=== PATIENT | female | born 1985 | race Caucasian/White ===

== ENCOUNTER 2016-11-02 16:19 | Inpatient (IN) ==
--- NOTE | 2016-11-02 16:33 | Emergency Department Note ---
Disposition Clinical Impression: Hypokalemia, ISAIAS (acute kidney injury), Dehydration, Weight loss, abnormal, Pyelonephritis Nausea & vomiting Qualifiers: Vomiting type: unspecified Vomiting Intractability: unspecified Qualified Code( s): R11.2 - Nausea with vomiting, unspecified Anemia Qualifiers: Anemia type: unspecified type Qualified Code(s): D64.9 - Anemia, unspecified Disposition: Admitted As Inpatient Condition: Fair Referrals: Patrick Farris DO [Primary Care Provider] - Forms: ED Satisfaction Letter Time of Disposition: 18:48 Recheck wound or abnormal lab - General Chief Complaint: ED Recheck/Abnormal Lab/Rx Stated Complaint: Abnormal Labs / - Potasium Time Seen by Provider: 11/02/16 16:25 Source: patient, family Limitations: no limitations Nursing Notes Reviewed: Yes Vital Signs Reviewed: Yes - History of Present Illness HPI Narrative: 31-year-old female with history of cerebral palsy, bipolar, seizure disorder, presents with 20-30 pounds weight loss over the last few months, also she is dilated by her primary care physician yesterday and found to have hypokalemia potassium 2.3, patient denies shortness of breath chest pain lightheadedness. Patient reports right upper quadrant pain or left lower quadrant pain nonradiating, crampy, difficulty to eat meals because she has pain after meals, 8 out of 10, crampy in quality. Patient is a history of cholecystectomy laparoscopically, history of bilateral hernia repairs. Has a nexplanon amenorrhea secondary to norgesterol. Pt Subjective Complaint: abnormal lab(s) Symptoms Since Prior Visit: no new symptoms - Related Data Home Medications Medication Instructions Recorded Confirmed Albuterol Neb [AccuNeb] 2.5 mg IH TID PRN 04/18/15 07/04/15 Aripiprazole [Abilify Maintena] 400 mg IM Q3W 04/18/15 07/04/15 Cetirizine HCl [Zyrtec] 1 cap PO HS 04/18/15 07/04/15 Divalproex (12 HR) [Depakote (12 500 tab PO BID 04/18/15 07/04/15 HR)] Esomeprazole Magnesium [Nexium] 1 cap PO DAILY 04/18/15 07/04/15 Fluticasone/Salmeterol [Advair 1 puff IH BID 04/18/15 07/04/15 250-50 Diskus] Gabapentin [Neurontin] 600 mg PO TID 04/18/15 07/04/15 LevETIRAcetam [Keppra] 1,000 mg PO BID 04/18/15 07/04/15 Montelukast [Singulair] 10 mg PO DAILY 04/18/15 07/04/15 Solifenacin Succinate [Vesicare] 10 mg PO HS 04/18/15 07/04/15 Topiramate [Topamax] 50 mg PO HS 04/18/15 07/04/15 Albuterol Sulfate [Albuterol 90 mcg IH Q4HR PRN 05/09/15 07/04/15 Inhaler] Docusate [Colace] 100 mg PO DAILY PRN 05/09/15 07/04/15 Etonogestrel [Nexplanon] 68 mg SQ ONCE 05/09/15 07/04/15 Previous Rx's Medication Instructions Recorded TraMADol [Ultram] 50 mg PO Q4HR PRN #20 tablet 05/23/15 Cefdinir [Omnicef] 300 mg PO BID #20 capsule 05/30/15 Azithromycin [Zithromax Tri-Joel] 500 mg PO DAILY #3 tablet 07/04/15 Benzonatate [Tessalon] 100 mg PO TID #30 capsule 07/04/15 GuaiFENesin ER [Mucinex] 1,200 mg PO BID #20 tbbp.12hr 07/04/15 Allergies Allergy/AdvReac Type Severity Reaction Status Date / Time Amoxicillin Allergy Mild Hives Verified 05/09/15 07:42 acetaminophen [From Vicodin] AdvReac Severe Itching Verified 04/25/15 14:56 hydrocodone [From Vicodin] AdvReac Severe Itching Verified 11/02/16 16:21 Oxycodone [From Percocet] AdvReac Severe Itching Verified 11/02/16 16:21 codeine AdvReac Unknown UNKNOWN Verified 11/02/16 16:21 fexofenadine [From Eliza-D] AdvReac Unknown Seizure Verified 11/02/16 16:21 lamotrigine [From Lamictal] AdvReac Unknown unknown Verified 11/02/16 16:21 levofloxacin [From Levaquin] AdvReac Unknown UNKNOWN Verified 11/02/16 16:21 prednisone AdvReac Unknown unknown Verified 11/02/16 16:21 pseudoephedrine AdvReac Unknown Seizure Verified 11/02/16 16:21 [From Eliza-D] sertraline [From Zoloft] AdvReac Unknown unknown Verified 11/02/16 16:21 Sulfa (Sulfonamide AdvReac Unknown unknown Verified 11/02/16 16:21 Antibiotics) brexpiprazole [From Rexulti] AdvReac Hallucinati Verified 11/02/16 16:21 ng All systems ED: reviewed and negative except as stated. Constitutional: Reports: weakness, weight change (loss 20-30 pounds in the last month or 2). Denies: fever, chills Cardiovascular: Denies: chest pain, palpitations Respiratory: Denies: cough, dyspnea Gastrointestinal: Reports: as per HPI, abdominal pain, nausea, vomiting, melena. Denies: hematemesis Genitourinary: Denies: urgency, dysuria, frequency Musculoskeletal: Denies: back pain, neck pain Integumentary: Denies: rash Neurological: Denies: headache, weakness Past Medical History - Past Medical History Attestation: Yes The following information was validated with the patient. 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 No rigidity, soft nondistended abdomen Back: normal inspection, no tenderness to palpation Neuro: A&O3, no gross motor or sensory deficits bilaterally MSK: Right foot brace Psych: normal mood, normal affect Skin: No rashes, skin warm, dry, intact - General Limitations: no limitations General appearance: alert, in no apparent distress Course Course Narrative: 31-year-old female with hypokalemia, normal Depakote level, we will check urinalysis, CBC CMP lipase mag [place], repeating, adding potassium IV and oral, also give fluids, checking CT of abdomen giving abdominal exam that showed mild tenderness to palpation left lower quadrant, moderate right upper quadrant tenderness to palpation, no fever, scleral icterus or jaundice, concern for intra-abdominal pathology, also given hypokalemia of unclear origin could be due to gastroenteritis, history of IBS also and GI losses could account for some hypokalemia however this is severe likely patient will be admitted for fluid rehydration and electrolyte status. Guaiac of stool sent, given complaint of melenic stools - Reevaluation(s) Reevaluation #1: 31-year-old female with possible pyelonephritis, hypokalemia, acute on chronic renal failure, we will treat with ceftriaxone, admitted to medicine service for further workup, IV abx and potassium replacement. Time: 19:04 Vital Signs Temperature 98.0 F 11/02/16 16:21 Pulse Rate 87 11/02/16 16:21 Respiratory Rate 15 11/02/16 16:21 Blood Pressure 118/78 11/02/16 16:21 O2 Sat by Pulse Oximetry 100 11/02/16 16:21 Temperature 98.0 F 11/02/16 16:21 Pulse Rate 90 11/02/16 18:39 Respiratory Rate 16 11/02/16 18:39 Blood Pressure 123/83 11/02/16 18:39 O2 Sat by Pulse Oximetry 100 11/02/16 18:39 Oxygen Delivery Oxygen Delivery Room Air Recheck wound or abnormal lab - MDM Narrative Medical decision making narrative: 31-year-old female with hypokalemia and anemia acute kidney injury admitted to medicine service for weight loss nausea vomiting diarrhea, hypokalemia, fluid rehydration and medical management. Admitteed to hospitalist, CT scan reviewed no surgical pathology. CT scan shows evidence of possible ascending urinary tract infection, we will add ceftriaxone patient was recently treated with Avelox for UTI, we will treat appropriate prior to urinalysis received because patient was unable to urinate. - Medical Records Medical records reviewed: Yes I reviewed the patient's medical records. - Lab Data Lab results reviewed: Yes I reviewed the patient's lab results. Result diagrams: 11/02/16 17:23 11/02/16 17:23 Lab Results 0411/02/16 11/02/16 Range/Units 17:23 17:23 17:23 WBC 9.8 (4.3-11.1) K/mcL RBC 2.89 L (3.82-4.97) M/mcL Hgb 9.2 L D (11.5-15.4) g/dL Hct 27.8 L (35.3-44.9) % MCV 96.2 (83.0-100.0) fL MCH 31.8 (28.0-33.3) pg MCHC 33.1 (31.6-35.5) g/dL RDW 13.6 (11.5-14.5) % Plt Count 225 (140-400) K/mcL MPV 9.6 (9.4-12.4) fL Immature Gran % 4.1 H (0-4) % Seg Neutrophils % 55.9 % Lymphocytes % 29.7 % Monocytes % 9.7 % Eosinophils % 0.2 % Basophils % 0.4 % Neutrophils # 5.4 (1.6-8.9) K/mcL Lymphocytes # 2.9 (0.6-4.6) K/mcL Monocytes # 1.0 (0.0-1.3) K/mcL Eosinophils # 0.0 (0.0-0.6) K/mcL Basophils # 0.0 (0.0-0.2) K/mcL Sodium 135 L (136-145) mEq/L Potassium 2.7 L (3.5-4.5) mEq/L Chloride 96 L (98-109) mEq/L Carbon Dioxide 24 (19-29) mEq/L BUN 11 (7-20) mg/dL Creatinine 1.37 H (0.57-1.11) mg/dL Est GFR ( Amer) 55 L (> 60) Est GFR (Non-Af Amer) 45 L (> 60) BUN/Creatinine Ratio 8 (6-26) Glucose 93 (70-99) mg/dL Calculated Osmolality 279 L (280-300) Calcium 8.9 (8.6-10.8) mg/dL Phosphorus 4.5 (2.3-4.7) mg/dL Magnesium 2.2 (1.6-2.6) mg/dL Total Bilirubin 0.4 (0.2-1.2) mg/dL AST 15 (5-34) Units/L ALT 14 (0-55) Units/L Alkaline Phosphatase 60 (38-126) Units/L Serum Total Protein 6.8 (6.0-8.3) g/dL Albumin 2.4 L (3.5-5.0) g/dL Globulin 4.4 H (2.4-3.5) g/dL Albumin/Globulin Ratio 0.5 L (1.1-2.2) Lipase 15 (8-78) Units/L Serum , Qual (Negative) Stool Occult Blood (Negative) 11/02/16 11/02/16 Range/Units 17:23 17:38 WBC (4.3-11.1) K/mcL RBC (3.82-4.97) M/mcL Hgb (11.5-15.4) g/dL Hct (35.3-44.9) % MCV (83.0-100.0) fL MCH (28.0-33.3) pg MCHC (31.6-35.5) g/dL RDW (11.5-14.5) % Plt Count (140-400) K/mcL MPV (9.4-12.4) fL Immature Gran % (0-4) % Seg Neutrophils % % Lymphocytes % % Monocytes % % Eosinophils % % Basophils % % Neutrophils # (1.6-8.9) K/mcL Lymphocytes # (0.6-4.6) K/mcL Monocytes # (0.0-1.3) K/mcL Eosinophils # (0.0-0.6) K/mcL Basophils # (0.0-0.2) K/mcL Sodium (136-145) mEq/L Potassium (3.5-4.5) mEq/L Chloride (98-109) mEq/L Carbon Dioxide (19-29) mEq/L BUN (7-20) mg/dL Creatinine (0.57-1.11) mg/dL Est GFR ( Amer) (> 60) Est GFR (Non-Af Amer) (> 60) BUN/Creatinine Ratio (6-26) Glucose (70-99) mg/dL Calculated Osmolality (280-300) Calcium (8.6-10.8) mg/dL Phosphorus (2.3-4.7) mg/dL Magnesium (1.6-2.6) mg/dL Total Bilirubin (0.2-1.2) mg/dL AST (5-34) Units/L ALT (0-55) Units/L Alkaline Phosphatase (38-126) Units/L Serum Total Protein (6.0-8.3) g/dL Albumin (3.5-5.0) g/dL Globulin (2.4-3.5) g/dL Albumin/Globulin Ratio (1.1-2.2) Lipase (8-78) Units/L Serum , Qual Negative (Negative) Stool Occult Blood Negative (Negative) - Radiology Data Radiology results reviewed: Yes I reviewed the patient's radiology results. - EKG Data EKG attestation: Yes I reviewed and interpreted this EKG. EKG shows normal: sinus rhythm Rate: normal (84 bpm RI 113 QRS 95 QTc 471 T wave inversions) T wave inversions noted in: v2, v3, v4 Interpretation: nonspecific ST-T wave changes - Core Measures AMI Core Measures Followed: No
--- NOTE | 2016-11-02 16:33 | Emergency Department Note ---
Disposition Clinical Impression: Hypokalemia, Nausea & vomiting, Anemia, ISAIAS (acute kidney injury), Dehydration , Weight loss, abnormal, Pyelonephritis Disposition: Admitted As Inpatient Condition: Fair General Adult HPI - General Chief complaint: ED Recheck/Abnormal Lab/Rx Stated complaint: Abnormal Labs / - Potasium Time Seen by Provider: 11/02/16 16:29 Source: patient, family Limitations: no limitations - History of Present Illness Pain Scale: 6 - Related Data Home Medications Medication Instructions Recorded Confirmed Albuterol Neb [AccuNeb] 2.5 mg IH TID PRN 04/18/15 11/02/16 Cetirizine HCl [Zyrtec] 1 cap PO HS 04/18/15 07/04/15 Divalproex (12 HR) [Depakote (12 500 tab PO BID 04/18/15 11/02/16 HR)] Fluticasone/Salmeterol [Advair 1 puff IH BID 04/18/15 11/02/16 250-50 Diskus] Gabapentin [Neurontin] 600 mg PO TID 04/18/15 11/02/16 LevETIRAcetam [Keppra] 1,000 mg PO BID 04/18/15 11/02/16 Montelukast [Singulair] 10 mg PO DAILY 04/18/15 11/02/16 Solifenacin Succinate [Vesicare] 10 mg PO HS 04/18/15 11/02/16 Topiramate [Topamax] 50 mg PO HS 04/18/15 11/02/16 Albuterol Sulfate [Albuterol 90 mcg IH Q4HR PRN 05/09/15 07/04/15 Inhaler] Etonogestrel [Nexplanon] 68 mg SQ ONCE 05/09/15 11/02/16 Depakote (12 HR) 250 mg PO HS 11/02/16 11/02/16 Lansoprazole [Prevacid] 30 mg PO QDPC 11/02/16 11/02/16 Allergies Allergy/AdvReac Type Severity Reaction Status Date / Time Amoxicillin Allergy Mild Hives Verified 05/09/15 07:42 acetaminophen [From Vicodin] AdvReac Severe Itching Verified 04/25/15 14:56 hydrocodone [From Vicodin] AdvReac Severe Itching Verified 04/08/17 16:21 Oxycodone [From Percocet] AdvReac Severe Itching Verified 11/02/16 16:21 codeine AdvReac Unknown UNKNOWN Verified 11/02/16 16:21 fexofenadine [From Eliza-D] AdvReac Unknown Seizure Verified 11/02/16 16:21 lamotrigine [From Lamictal] AdvReac Unknown unknown Verified 11/02/16 16:21 levofloxacin [From Levaquin] AdvReac Unknown UNKNOWN Verified 11/02/16 16:21 prednisone AdvReac Unknown unknown Verified 11/02/16 16:21 pseudoephedrine AdvReac Unknown Seizure Verified 11/02/16 16:21 [From Eliza-D] sertraline [From Zoloft] AdvReac Unknown unknown Verified 11/02/16 16:21 Sulfa (Sulfonamide AdvReac Unknown unknown Verified 11/02/16 16:21 Antibiotics) brexpiprazole [From Rexulti] AdvReac Hallucinati Verified 11/02/16 16:21 ng Past Medical History - Past Medical History Medical history: Reports: asthma, seizures, other Surgical history: Reports: cholecystectomy Psychiatric history: Reports: anxiety, bipolar 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 - Social History Smoking Status: Never smoker Smokeless Tobacco Status: No Alcohol use: Reports: none Drug use: Reports: none Physical Exam - General Limitations: no limitations General appearance: alert, in no apparent distress Course Vital Signs Temperature 98.0 F 11/02/16 16:21 Pulse Rate 87 11/02/16 16:21 Respiratory Rate 15 11/02/16 16:21 Blood Pressure 118/78 11/02/16 16:21 O2 Sat by Pulse Oximetry 100 11/02/16 16:21 Temperature 97.8 F 11/03/16 03:57 Pulse Rate 88 11/03/16 03:57 Respiratory Rate 15 11/03/16 03:57 Blood Pressure 99/61 11/03/16 03:57 O2 Sat by Pulse Oximetry 96 11/03/16 03:57 Oxygen Delivery Oxygen Delivery Room Air Medical Decision Making - Lab Data Result diagrams: 11/03/16 03:42 11/03/16 03:42 Lab Results 11/02/16 11/02/16 11/02/16 Range/Units 17:23 17:23 17:23 WBC 9.8 (4.3-11.1) K/mcL RBC 2.89 L (3.82-4.97) M/mcL Hgb 9.2 L D (11.5-15.4) g/dL Hct 27.8 L (35.3-44.9) % MCV 96.2 (83.0-100.0) fL MCH 31.8 (28.0-33.3) pg MCHC 33.1 (31.6-35.5) g/dL RDW 13.6 (11.5-14.5) % Plt Count 225 (140-400) K/mcL MPV 9.6 (9.4-12.4) fL Immature Gran % 4.1 H (0-4) % Seg Neutrophils % 55.9 % Lymphocytes % 29.7 % Monocytes % 9.7 % Eosinophils % 0.2 % Basophils % 0.4 % Neutrophils # 5.4 (1.6-8.9) K/mcL Lymphocytes # 2.9 (0.6-4.6) K/mcL Monocytes # 1.0 (0.0-1.3) K/mcL Eosinophils # 0.0 (0.0-0.6) K/mcL Basophils # 0.0 (0.0-0.2) K/mcL Sodium 135 L (136-145) mEq/L Potassium 2.7 L (3.5-4.5) mEq/L Chloride 96 L (98-109) mEq/L Carbon Dioxide 24 (19-29) mEq/L BUN 11 (7-20) mg/dL Creatinine 1.37 H (0.57-1.11) mg/dL Est GFR ( Amer) 55 L (> 60) Est GFR (Non-Af Amer) 45 L (> 60) BUN/Creatinine Ratio 8 (6-26) Glucose 93 (70-99) mg/dL Calculated Osmolality 279 L (280-300) Calcium 8.9 (8.6-10.8) mg/dL Phosphorus 4.5 (2.3-4.7) mg/dL Magnesium 2.2 (1.6-2.6) mg/dL Total Bilirubin 0.4 (0.2-1.2) mg/dL AST 15 (5-34) Units/L ALT 14 (0-55) Units/L Alkaline Phosphatase 60 (38-126) Units/L Serum Total Protein 6.8 (6.0-8.3) g/dL Albumin 2.4 L (3.5-5.0) g/dL Globulin 4.4 H (2.4-3.5) g/dL Albumin/Globulin Ratio 0.5 L (1.1-2.2) Lipase 15 (8-78) Units/L Serum , Qual (Negative) Urine Color (Yellow) Urine Clarity (Clear) Urine pH (5.0-8.0) pH Units Ur Specific Inez (1.010-1.025) Urine Protein (Neg-Trace) mg/dL Urine Glucose (UA) (Normal) mg/dL Urine Ketones (Negative) mg/dL Urine Blood (Negative) Urine Nitrite (Negative) Urine Bilirubin (Negative) Urine Urobilinogen (Normal) mg/dL Ur Leukocyte Esterase (Negative) Urine Microscopic RBC (0-3) per hpf Urine Microscopic WBC (0-3) per hpf Ur Squamous Epith Cells (None-Few) per lpf Urine Bacteria (None-Few) per hpf Hyaline Casts (None-Few) per lpf Ur Culture Indicated? (NO) Urine Test (Negative) Stool Occult Blood (Negative) 11/02/16 11/02/16 11/02/16 Range/Units 17:23 17:38 19:57 WBC (4.3-11.1) K/mcL RBC (3.82-4.97) M/mcL Hgb (11.5-15.4) g/dL Hct (35.3-44.9) % MCV (83.0-100.0) fL MCH (28.0-33.3) pg MCHC (31.6-35.5) g/dL RDW (11.5-14.5) % Plt Count (140-400) K/mcL MPV (9.4-12.4) fL Immature Gran % (0-4) % Seg Neutrophils % % Lymphocytes % % Monocytes % % Eosinophils % % Basophils % % Neutrophils # (1.6-8.9) K/mcL Lymphocytes # (0.6-4.6) K/mcL Monocytes # (0.0-1.3) K/mcL Eosinophils # (0.0-0.6) K/mcL Basophils # (0.0-0.2) K/mcL Sodium (136-145) mEq/L Potassium (3.5-4.5) mEq/L Chloride (98-109) mEq/L Carbon Dioxide (19-29) mEq/L BUN (7-20) mg/dL Creatinine (0.57-1.11) mg/dL Est GFR ( Amer) (> 60) Est GFR (Non-Af Amer) (> 60) BUN/Creatinine Ratio (6-26) Glucose (70-99) mg/dL Calculated Osmolality (280-300) Calcium (8.6-10.8) mg/dL Phosphorus (2.3-4.7) mg/dL Magnesium (1.6-2.6) mg/dL Total Bilirubin (0.2-1.2) mg/dL AST (5-34) Units/L ALT (0-55) Units/L Alkaline Phosphatase (38-126) Units/L Serum Total Protein (6.0-8.3) g/dL Albumin (3.5-5.0) g/dL Globulin (2.4-3.5) g/dL Albumin/Globulin Ratio (1.1-2.2) Lipase (8-78) Units/L Serum , Qual Negative (Negative) Urine Color Yellow (Yellow) Urine Clarity Cloudy A (Clear) Urine pH 6.5 (5.0-8.0) pH Units Ur Specific Inez 1.008 L (1.010-1.025) Urine Protein Trace (Neg-Trace) mg/dL Urine Glucose (UA) Normal (Normal) mg/dL Urine Ketones Negative (Negative) mg/dL Urine Blood Moderate H (Negative) Urine Nitrite Negative (Negative) Urine Bilirubin Negative (Negative) Urine Urobilinogen Normal (Normal) mg/dL Ur Leukocyte Esterase Moderate H (Negative) Urine Microscopic RBC 0-3 (0-3) per hpf Urine Microscopic WBC 30-50 H (0-3) per hpf Ur Squamous Epith Cells Many H (None-Few) per lpf Urine Bacteria None Seen (None-Few) per hpf Hyaline Casts None Seen (None-Few) per lpf Ur Culture Indicated? YES A (NO) Urine Test (Negative) Stool Occult Blood Negative (Negative) 11/02/16 Range/Units 19:57 WBC (4.3-11.1) K/mcL RBC (3.82-4.97) M/mcL Hgb (11.5-15.4) g/dL Hct (35.3-44.9) % MCV (83.0-100.0) fL MCH (28.0-33.3) pg MCHC (31.6-35.5) g/dL RDW (11.5-14.5) % Plt Count (140-400) K/mcL MPV (9.4-12.4) fL Immature Gran % (0-4) % Seg Neutrophils % % Lymphocytes % % Monocytes % % Eosinophils % % Basophils % % Neutrophils # (1.6-8.9) K/mcL Lymphocytes # (0.6-4.6) K/mcL Monocytes # (0.0-1.3) K/mcL Eosinophils # (0.0-0.6) K/mcL Basophils # (0.0-0.2) K/mcL Sodium (136-145) mEq/L Potassium (3.5-4.5) mEq/L Chloride (98-109) mEq/L Carbon Dioxide (19-29) mEq/L BUN (7-20) mg/dL Creatinine (0.57-1.11) mg/dL Est GFR ( Amer) (> 60) Est GFR (Non-Af Amer) (> 60) BUN/Creatinine Ratio (6-26) Glucose (70-99) mg/dL Calculated Osmolality (280-300) Calcium (8.6-10.8) mg/dL Phosphorus (2.3-4.7) mg/dL Magnesium (1.6-2.6) mg/dL Total Bilirubin (0.2-1.2) mg/dL AST (5-34) Units/L ALT (0-55) Units/L Alkaline Phosphatase (38-126) Units/L Serum Total Protein (6.0-8.3) g/dL Albumin (3.5-5.0) g/dL Globulin (2.4-3.5) g/dL Albumin/Globulin Ratio (1.1-2.2) Lipase (8-78) Units/L Serum , Qual (Negative) Urine Color (Yellow) Urine Clarity (Clear) Urine pH (5.0-8.0) pH Units Ur Specific Inez (1.010-1.025) Urine Protein (Neg-Trace) mg/dL Urine Glucose (UA) (Normal) mg/dL Urine Ketones (Negative) mg/dL Urine Blood (Negative) Urine Nitrite (Negative) Urine Bilirubin (Negative) Urine Urobilinogen (Normal) mg/dL Ur Leukocyte Esterase (Negative) Urine Microscopic RBC (0-3) per hpf Urine Microscopic WBC (0-3) per hpf Ur Squamous Epith Cells (None-Few) per lpf Urine Bacteria (None-Few) per hpf Hyaline Casts (None-Few) per lpf Ur Culture Indicated? (NO) Urine Test Negative (Negative) Stool Occult Blood (Negative) Attestation Statement - Attestation Attestation: I examined this patient and my medical decision-making was reviewed with the ELEVATOR STARTER/PA/Advanced Practice Nurse/Resident Physician. I agree with the documented findings, disposition and treatment plan as described except to the extent set forth below. Face to face time provided Patient presents at the recommendation of her primary care provider after having an outpatient lab indicating hypokalemia. She has a known history of seizure disorder. Appears in no acute distress on exam. Family at bedside
[2016-11-02 17:32] LABS: Basophils % 0.4 %; Eosinophils % 0.2 %; Hematocrit 27.8 % (35.3-44.9); Immature Granulocytes % 4.1 % (0-4); Lymphocytes # 2.9 K/mcL (0.6-4.6); Lymphocytes % 29.7 %; Mean Corpuscular HGB Conc 33.1 g/dL (31.6-35.5); Mean Corpuscular Hemoglobin 31.8 pg (28.0-33.3); Mean Corpuscular Volume 96.2 fL (83.0-100.0); Mean Platelet Volume 9.6 fL (9.4-12.4); Monocytes % 9.7 %; Neutrophils # 5.4 K/mcL (1.6-8.9); Platelet Count 225 K/mcL (140-400); Red Blood Count 2.89 M/mcL (3.82-4.97); Red Cell Distribution Width 13.6 % (11.5-14.5); Segmented Neutrophils % 55.9 %
[2016-11-02 17:35] LABS: Hemoglobin 9.2 g/dL (11.5-15.4)
[2016-11-02] MEDS ORDERED: 0.9 % Sodium Chloride 1,000 ML IVC ONE (17:38)
[2016-11-02 17:44] LABS: Magnesium 2.2 mg/dL (1.6-2.6); Phosphorous 4.5 mg/dL (2.3-4.7)
[2016-11-02 17:46] LABS: Albumin 2.4 g/dL (3.5-5.0); Albumin/Globulin Ratio 0.5 (1.1-2.2); Bilirubin,Total 0.4 mg/dL (0.2-1.2); Calcium 8.9 mg/dL (8.6-10.8); Globulin 4.4 g/dL (2.4-3.5); Potassium 2.7 mEq/L (3.5-4.5); Total Protein 6.8 g/dL (6.0-8.3)
[2016-11-02] MEDS ORDERED: CefTRIAXone 1,000 MG VIAL IVPB ONE (19:02)
[2016-11-02] MEDS ORDERED: 0.9 % Sodium Chloride 1,000 ML ONE (19:38)
[2016-11-02] MEDS ORDERED: D5% in Water (Mini-Bag+) 100 ML IVPB ONE (19:49)
[2016-11-02 20:10] LABS: Bilirubin,Urine Negative (Negative); Blood,Urine Moderate (Negative); Clarity,Urine Cloudy (Clear); Color,Urine Yellow (Yellow); Glucose,Urine (UA) Normal (Normal); Ketones,Urine Negative (Negative); Leukocyte Esterase,Urine Moderate (Negative); Nitrite,Urine Negative (Negative); PH,Urine 6.5 pH Units (5.0-8.0); Protein,Urine Trace mg/dL (Neg-Trace); Specific Gravity,Urine 1.008 (1.010-1.025); Urobilinogen,Urine Normal (Normal)
[2016-11-02 20:12] LABS: Bacteria,Urine None Seen per hpf (None-Few); Hyaline Casts,Urine None Seen per lpf (None-Few); RBC,Urine 0-3 per hpf (0-3); Squamous Epithelial Cell,Urine Many per lpf (None-Few); WBC,Urine 30-50 per hpf (0-3)
[2016-11-02] MEDS ORDERED: Naloxone 0.4 MG/ML INJ IVP PRN (22:07)
[2016-11-02] MEDS ORDERED: *HR* LORazepam 2 MG/ML VIAL IVP PRN (22:11)
--- NOTE | 2016-11-02 22:15 | Internal Med History&Physical ---
Date of Encounter: 11/02/16 Time of Encounter: 21:00 Assessment and Plan (1) Acute pyelonephritis Current visit: Yes Status: Acute Treatment with ceftriaxone. Urine cultures pending. Titrate antibodies based on the culture results. (2) ISAIAS (acute kidney injury) Current visit: Yes Status: Acute Possibly prerenal due to volume depletion from diarrhea / pyelonephritis (3) Hypokalemia Current visit: Yes Status: Acute Possibly GI loss / decreased oral intake. Replenish potassium. Monitor potassium level (4) Cerebral palsy Current visit: Yes Status: Chronic Supportive care Qualifiers: Cerebral palsy type: unspecified type Qualified Code(s): G80.9 - Cerebral palsy, unspecified (5) Seizure disorder Current visit: Yes Status: Chronic Seizure precautions. Continue her home medications (6) Asthma Current visit: Yes Status: Chronic Continue bronchodilators Qualifiers: Asthma severity: unspecified severity Asthma complication type: uncomplicated Qualified Code(s): J45.909 - Unspecified asthma, uncomplicated (7) Weight loss, abnormal Current visit: Yes Status: Acute will check TSH and cortisol. W/U per her PCP (8) Normocytic anemia Current visit: Yes Status: Acute Will repeat fecal occult blood - initially was negative in the ER. Will check Iron profile, B12 and folate level (9) DVT prophylaxis Current visit: Yes Status: Acute SCDs. Will avoid Anticoagulants, as the pt reported black stool (thought the stool occult blood is negaitve. Will repeat occult blood) Internal Medicine - H&P: HPI Chief complaint: Abdominal pain Admitted From: Emergency Dept Plans for Post Hospital Care: Home History of present illness: Ms. Gomes is a 31 year old female with history of cerebral palsy, bipolar, seizure disorder, asthma, seizures was noted to have serum potassium of 2.3 on the labs from her PCPs office and was advised to go to the ER. In the emergency department she reported left flank/lower abdominal pain, nonradiating , crampy, pain is worse after meal. She denies dysuria or hematuria. She reports runny stool, about 2 times / day, which is apparently black in color and been going on for a few weeks. She denies nausea, vomiting, fever, chills, chest pain, shortness of breath, cough or expectoration. She apparently had 20- 30 pounds weight loss over the last few months. She was evaluated in the emergency department and the CT scan of the abdomen was suspicious for ascending urinary tract infection. She was given ceftriaxone and intravenous fluids. Serum potassium was 2.7 and was given potassium chloride. Fecal occult blood was negative. She is admitted to the hospitalist service for further management. Past Med Surg Social Fam HX - Past Medical History Medical history: asthma, seizures, other Psychiatric history: anxiety, bipolar - Past Surgical History Surgical History: cholecystectomy - Social History Smoking Status: Never smoker Smokeless Tobacco Status: No Alcohol use: none Drug use: none - Family History Mother Hx Family Cardiac Disorders: Yes (ID) Hx Family Endocrine Disorder: Yes (DM) Father Hx Family Cardiac Disorders: Yes Hx Family GI Disorders: Yes (Celiac disease.) Internal Medicine - H&P: Meds Albuterol Neb [AccuNeb] 2.5 mg IH TID PRN 04/18/15 [History] Cetirizine HCl [Zyrtec] 1 cap PO HS 04/18/15 [History] Divalproex (12 HR) [Depakote (12 HR)] 500 tab PO BID 04/18/15 [History] Fluticasone/Salmeterol [Advair 250-50 Diskus] 1 puff IH BID 04/18/15 [History] Gabapentin [Neurontin] 600 mg PO TID 04/18/15 [History] LevETIRAcetam [Keppra] 1,000 mg PO BID 04/18/15 [History] Montelukast [Singulair] 10 mg PO DAILY 04/18/15 [History] Solifenacin Succinate [Vesicare] 10 mg PO HS 04/18/15 [History] Topiramate [Topamax] 50 mg PO HS 04/18/15 [History] Albuterol Sulfate [Albuterol Inhaler] 90 mcg IH Q4HR PRN 05/09/15 [History] Etonogestrel [Nexplanon] 68 mg SQ ONCE 05/09/15 [History] Depakote (12 HR) 250 mg PO HS 11/02/16 [History] Lansoprazole [Prevacid] 30 mg PO QDPC 11/02/16 [History] Allergies Amoxicillin Allergy (Mild, Verified 05/09/15 07:42) Hives acetaminophen [From Vicodin] Adverse Reaction (Severe, Verified 04/25/15 14:56) Itching hydrocodone [From Vicodin] Adverse Reaction (Severe, Verified 11/02/16 16:21) Itching Oxycodone [From Percocet] Adverse Reaction (Severe, Verified 11/02/16 16:21) Itching codeine Adverse Reaction (Unknown, Verified 11/02/16 16:21) UNKNOWN fexofenadine [From Eliza-D] Adverse Reaction (Unknown, Verified 11/02/16 16:21 ) Seizure lamotrigine [From Lamictal] Adverse Reaction (Unknown, Verified 11/02/16 16:21) unknown levofloxacin [From Levaquin] Adverse Reaction (Unknown, Verified 11/02/16 16:21) UNKNOWN prednisone Adverse Reaction (Unknown, Verified 11/02/16 16:21) unknown pseudoephedrine [From Eliza-D] Adverse Reaction (Unknown, Verified 11/02/16 16 :21) Seizure sertraline [From Zoloft] Adverse Reaction (Unknown, Verified 11/02/16 16:21) unknown Sulfa (Sulfonamide Antibiotics) Adverse Reaction (Unknown, Verified 11/02/16 16: 21) unknown brexpiprazole [From Rexulti] Adverse Reaction (Verified 11/02/16 16:21) Hallucinating All Systems PM: A 10-system review of systems was performed and is negative for pertinent findings except as documented above in the HPI. - Constitutional Vitals: Temp Pulse Resp BP Pulse Ox 98.2 F 86 16 119/81 93 11/02/16 20:52 11/02/16 20:52 11/02/16 20:52 11/02/16 20:52 11/02/16 20:52 Exam: General: Not in acute distress at the time of my evaluation HEENT: Oral mucosa is moist. No scleral icterus Neck: No obvious neck swellings Lungs: Clear to auscultation Cardiac: Regular rate and rhythm. No significant murmurs Abdomen: Soft. Tenderness present in the left mid and lower abdomen. Bowel sounds present Genitourinary: No dee catheter Neurological: Alert and oriented. Known cerebral palsy, with right sided weakness Psych: Not aggressive or agitated Extremities: Mild leg edema Skin: No generalized rash Internal Med - H&P Results - Labs CBC & Chem 7: 11/02/16 17:23 11/02/16 17:23 Labs: Urine 11/02/16 Range/Units 19:57 Urine Color Yellow (Yellow) Urine Clarity Cloudy A (Clear) Urine pH 6.5 (5.0-8.0) pH Units Ur Specific [place] 1.008 L (1.010-1.025) Urine Protein Trace (Neg-Trace) mg/dL Urine Glucose (UA) Normal (Normal) mg/dL - EKG Data -: EKG Interpreted by Myself EKG shows normal: sinus rhythm - EKG Data EKG comments: T wave inversions in lead 2, 3, aVF, V3 to V5 11/03/16 03:53 - Impressions ITS Impressions Abdomen/Pelvis CT 11/02/16 16:43 IMPRESSION: 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 The urinary bladder demonstrates circumferential wall thickening. Findings are concerning for ascending urinary tract infection. No evidence of urolithiasis. D/ / Ayush Benitez MD / Ayush Benitez MD Interpreting Provider: Ayush Benitez MD
[2016-11-02] MEDS ORDERED: *HR* Morphine 2 MG/ML SYRINGE IVP PRN ×2 (23:01)
[2016-11-03] MEDS: Divalproex (12 HR) 500 MG TABLET PO SCH ×3 (00:18→20:21)
[2016-11-03] MEDS: Topiramate 25 MG TABLET PO SCH ×2 (00:19→20:21)
[2016-11-03] MEDS: 0.9 % Sodium Chloride 1,000 ML IVC SCH ×3 (00:20→20:21)
[2016-11-03] MEDS: levETIRAcetam 250 MG TABLET PO SCH ×3 (01:04→20:20)
[2016-11-03] MEDS ORDERED: Pantoprazole 40 MG VIAL IVP ONE (04:03)
[2016-11-03 04:18] LABS: Basophils # 0.1 K/mcL (0.0-0.2); Basophils % 0.5 %; Eosinophils % 0.1 %; Hematocrit 27.8 % (35.3-44.9); Hemoglobin 9.2 g/dL (11.5-15.4); Immature Granulocytes % 4.4 % (0-4); Lymphocytes # 1.9 K/mcL (0.6-4.6); Lymphocytes % 18.4 %; Mean Corpuscular HGB Conc 33.1 g/dL (31.6-35.5); Mean Corpuscular Hemoglobin 32.1 pg (28.0-33.3); Mean Corpuscular Volume 96.9 fL (83.0-100.0); Monocytes % 9.1 %; Neutrophils # 7.1 K/mcL (1.6-8.9); Platelet Count 223 K/mcL (140-400); Red Blood Count 2.87 M/mcL (3.82-4.97); Red Cell Distribution Width 13.8 % (11.5-14.5); Segmented Neutrophils % 67.5 %
[2016-11-03 04:31] LABS: BUN/Creatinine Ratio 8 (6-26); Blood Urea Nitrogen 6 mg/dL (7-20); Calcium 8.4 mg/dL (8.6-10.8); Carbon Dioxide 20 mEq/L (19-29); Chloride 111 mEq/L (98-109); Glucose 96 mg/dL (70-99); Osmolality,Calculated 287 (280-300); Sodium 140 mEq/L (136-145); eGFR For African Americans > 60 (> 60); eGFR For Non-African Americans > 60 (> 60)
[2016-11-03 04:33] LABS: Potassium 3.8 mEq/L (3.5-4.5)
[2016-11-03 05:41] LABS: % Iron Saturation 20 % (15-50); Iron 42 mcg/dL (50-170); Transferrin 151 mg/dL (180-382)
[2016-11-03 05:53] LABS: Folate 2.1 ng/mL (7.0-31.4)
[2016-11-03] MEDS ORDERED: *HR* Heparin 5,000 UNIT/ML VIAL SQ SCH (06:00)
[2016-11-03] MEDS: Lactobacillus 1 EACH CAP.SPRINK PO SCH ×2 (08:56→20:21)
[2016-11-03] MEDS ORDERED: NON-FORMULARY MEDICATION 1 EACH EACH (Levetiracetam [Keppra] 1,000 MG) PO SCH (09:45)
[2016-11-03] MEDS: Budesonide/Formoterol 80/4.5 MDI IH SCH ×2 (11:31→20:38)
--- NOTE | 2016-11-03 12:27 | Internal Med Progress Note ---
Date of Encounter: 11/03/16 Time of Encounter: 09:30 - Assessment and plan (1) Acute pyelonephritis Current Visit: Yes Status: Acute Assessment and plan: Continue ceftriaxone. Culture pending. Patient is alert and oriented 3. No signs of sepsis. No leukocytosis. Vital signs stable. (2) Hypokalemia Current Visit: Yes Status: Resolved (3) Nausea & vomiting Current Visit: Yes Status: Acute Assessment and plan: Decreased by mouth intake secondary to nausea. Patient has been able to take liquids today but is not yet eating. Continue antiemetic medications. (4) ISAIAS (acute kidney injury) Current Visit: Yes Status: Resolved (5) Dehydration Current Visit: Yes Status: Acute Assessment and plan: Continue IV fluids and to offer by mouth as she tolerates. (6) Weight loss, abnormal Current Visit: Yes Status: Acute Assessment and plan: Patient's father states that she has lost 20-30 pounds over the last 2 months. She states she has not been eating very well. Patient denies any appetite stimulants. We will continue to offer food as she tolerates. TSH normal. Cortisol level unremarkable. (7) Cerebral palsy Current Visit: Yes Status: Chronic Qualifiers: Cerebral palsy type: unspecified type Qualified Code(s): G80.9 - Cerebral palsy, unspecified (8) Seizure disorder Current Visit: Yes Status: Chronic Assessment and plan: No seizure-like activity since admission. Seizure precautions. (9) Asthma Current Visit: Yes Status: Chronic Assessment and plan: No acute exacerbation. Patient denies shortness of breath Qualifiers: Asthma severity: unspecified severity Asthma complication type: uncomplicated Qualified Code(s): J45.909 - Unspecified asthma, uncomplicated (10) DVT prophylaxis Current Visit: Yes Status: Acute Assessment and plan: SCD's ordered. Pharmacologic prophylaxis contraindicated secondary to anemia (11) Normocytic anemia Current Visit: Yes Status: Acute Assessment and plan: Acute, appears stable. We will continue to trend. We will guaiac next stool sample. - Subjective Interval history: Patient seen and examined. On examination, patient initially asleep in bed and awakened easily to voice. She currently complains of generalized abdominal pain. She states she was able to sleep well last night. - Constitutional Vitals: Temp Pulse Resp BP Pulse Ox 98.5 F 79 14 102/67 98 11/03/16 11:16 11/03/16 11:16 11/03/16 11:16 11/03/16 11:16 11/03/16 11:16 General appearance: Present: A&O X 3, pleasant, no acute distress, answers questions appropriately - Head Head exam: Present: atraumatic, normocephalic - Eye Eye exam: Present: PERRL, conjuntiva pink, sclera anicteric Pupils: Present: PERRL - Neck Neck exam general surgery: Present: supple, trachea midline. Absent: lymphadenopathy - Respiratory Respiratory exam: Present: decreased breath sounds. Absent: accessory muscle use, rales, respiratory distress, rhonchi, wheezes - Cardiovascular Cardiovascular exam: Present: RRR, +S1, +S2. Absent: diastolic murmur, gallop, rubs, systolic murmur - GI/Abdominal GI/Abdominal exam: Present: distended, normal bowel sounds, soft, tenderness ( diffuse), no peritoneal signs - Extremities Exam Extremities exam: Present: warm, radial pulses palpable and symetrical. Absent : calf tenderness, cyanotic, pedal edema - Neurological Exam Neurological exam: Present: alert, CN II-XII intact, oriented X3, no focal deficits. Absent: pronater drift, facial droop, speech deficit - Skin Skin exam: Present: dry, intact, pallor, warm Internal Medicine: Result - Labs CBC & Chem 7: 11/03/16 03:42 11/03/16 03:42 Labs: Short CBC 11/03/16 Range/Units 03:42 WBC 10.6 (4.3-11.1) K/mcL Hgb 9.2 L (11.5-15.4) g/dL Hct 27.8 L (35.3-44.9) % Plt Count 223 (140-400) K/mcL Neutrophils # 7.1 (1.6-8.9) K/mcL BMP 11/03/16 03:42 Sodium 140 Potassium 3.8 D Chloride 111 H D Carbon Dioxide 20 BUN 6 L Creatinine 0.76 Glucose 96 Calcium 8.4 L Consult Discharge Plan - Plan Referrals: Patrick Farris DO [Primary Care Provider] -
[2016-11-03] MEDS: Gabapentin 300 MG CAPSULE PO SCH ×2 (14:11→20:19)
[2016-11-03 20:37] LABS: Adenovirus F 40/41 PCR Not detected (Not detect); Astrovirus PCR Not detected (Not detect); C.difficile Toxin A/B by PCR See reflex test (Not detect); Campylobacter by PCR Not detected (Not detect); Cryptosporidium by PCR Not detected (Not detect); Cyclospora cayetanensis PCR Not detected (Not detect); E. coli O157 by PCR Not detected (Not detect); Entamoeba histolytica PCR Not detected (Not detect); Enteroaggregative E.coli(EAEC) Not detected (Not detect); Enteropathogenic E.coli(EPEC) Not detected (Not detect); Enterotoxigenic E.coli (ETEC) Not detected (Not detect); Giardia lamblia PCR Not detected (Not detect); Norovirus GI/GII PCR Not detected (Not detect); Plesiomonas shigelloides PCR Not detected (Not detect); Rotavirus A PCR Not detected (Not detect); Salmonella PCR Not detected (Not detect); Sapovirus PCR Not detected (Not detect); Shig/EnteroinvasiveE coli EIEC Not detected (Not detect); Shigalike tox-prod E coli STEC Not detected (Not detect); Vibrio PCR Not detected (Not detect); Vibrio cholerae PCR Not detected (Not detect); Yersinia enterocolitica PCR Not detected (Not detect)
[2016-11-03] MEDS ORDERED: Divalproex (12 HR) 250 MG TABLET PO SCH (21:00)
[2016-11-03] MEDS ORDERED: NON-FORMULARY MEDICATION 1 EACH EACH (Topiramate [Topamax] 50 MG) PO SCH (21:00)
[2016-11-03] MEDS ORDERED: Loratadine 10 MG TABLET PO SCH (21:00)
[2016-11-03] MEDS: metroNIDAZOLE 500 MG TABLET PO SCH (22:32)
[2016-11-04 05:43] LABS: Hematocrit 30.3 % (35.3-44.9); Hemoglobin 9.8 g/dL (11.5-15.4); Mean Corpuscular HGB Conc 32.3 g/dL (31.6-35.5); Mean Corpuscular Hemoglobin 31.7 pg (28.0-33.3); Mean Corpuscular Volume 98.1 fL (83.0-100.0); Mean Platelet Volume 9.9 fL (9.4-12.4); Nucleated Red Blood Cells 0.2 /100 WBC (0); Platelet Count 216 K/mcL (140-400); Red Blood Count 3.09 M/mcL (3.82-4.97); Red Cell Distribution Width 14.3 % (11.5-14.5)
[2016-11-04 05:58] LABS: BUN/Creatinine Ratio 6 (6-26); Blood Urea Nitrogen 4 mg/dL (7-20); Calcium 8.7 mg/dL (8.6-10.8); Carbon Dioxide 21 mEq/L (19-29); Chloride 108 mEq/L (98-109); Glucose 82 mg/dL (70-99); Magnesium 1.7 mg/dL (1.6-2.6); Osmolality,Calculated 290 (280-300); Potassium 3.2 mEq/L (3.5-4.5); Sodium 142 mEq/L (136-145); eGFR For African Americans > 60 (> 60); eGFR For Non-African Americans > 60 (> 60)
[2016-11-04 06:11] LABS: Lymphocytes # 3.2 K/mcL (0.6-4.6); Monocytes # 1.1 K/mcL (0.0-1.3); Platelet Estimate Normal (Normal)
[2016-11-04] MEDS: 0.9 % Sodium Chloride 1,000 ML IVC SCH ×2 (06:50→17:15)
[2016-11-04] MEDS: Budesonide/Formoterol 80/4.5 MDI IH SCH ×2 (07:43→20:24)
--- NOTE | 2016-11-04 09:16 | Electrocardiograph Report ---
[address] [place] [address] Test Date: 2016-11-02 Pat Name: Maria Esther Gomes Department: 102 Room: 3B24 Gender: F Manager Commission: : 1985 Requested By: Bereket Boyer Order Number: [id number] Reading MD: Chuck Mccord MD Measurements Intervals [place] Rate: 84 P: 14 MS: 113 QRS: 8 QRSD: 95 T: -20 QT: 430 QTc: 471 Interpretive Statements SINUS RHYTHM WITH SHORT MS INTERVAL ANTERIOR ISCHEMIA Electronically Signed On 11-04-2016 9:14:40 EDT by Chuck Mccord MD
--- NOTE | 2016-11-04 09:30 | Electrocardiograph Report ---
[place] [address] Test Date: 2016-11-03 Pat Name: Maria Esther Gomes Department: 113 Room: 3B24 Gender: F Chief Operating Engineer: SAVANAH : 1985 Requested By: Cliff Oleary Order Number: [id number] Reading MD: Chuck Mccord MD Measurements Intervals [place] Rate: 81 P: 11 CT: 110 QRS: 9 QRSD: 90 T: -24 QT: 392 QTc: 429 Interpretive Statements SINUS RHYTHM WITH SHORT CT INTERVAL Electronically Signed On 11-04-2016 9:29:04 EDT by Chuck Mccord MD
[2016-11-04] MEDS: Lactobacillus 1 EACH CAP.SPRINK PO SCH (10:06)
[2016-11-04] MEDS: Divalproex (12 HR) 500 MG TABLET PO SCH (10:06)
[2016-11-04] MEDS: Gabapentin 300 MG CAPSULE PO SCH ×2 (10:07→16:10)
[2016-11-04] MEDS: metroNIDAZOLE 500 MG TABLET PO SCH ×2 (10:07→16:15)
[2016-11-04] MEDS: levETIRAcetam 250 MG TABLET PO SCH (10:07)
--- NOTE | 2016-11-04 13:16 | Internal Med Progress Note ---
Date of Encounter: 11/04/16 Time of Encounter: 10:30 - Assessment and plan (1) C. difficile diarrhea Current Visit: Yes Status: Acute Assessment and plan: Stool culture consistent with C. difficile. Patient does not think that she has ever had C. difficile before and neither does her aunt. Flagyl initiated. Patient has not had a bowel movement since yesterday. Contact precautions. 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 The urinary bladder demonstrates circumferential wall thickening. Findings are concerning for ascending urinary tract infection. No evidence of urolithiasis. D/ / Ayush Benitez MD / Ayush Benitez MD Interpreting Provider: Ayush Benitez MD (2) Acute pyelonephritis Current Visit: Yes Status: Acute Assessment and plan: Continue ceftriaxone. Culture consistent with pansensitive Escherichia coli. Allergies to penicillins, fluoroquinolones, and sulfa. We will continue cephalosporins. Patient remains alert and oriented 3. No signs of sepsis. No leukocytosis. Vital signs stable. (3) Hypokalemia Current Visit: Yes Status: Acute Assessment and plan: Likely secondary to her diarrhea. We will continue to supplement. Home dosage may need to be increased at disposition. Magnesium levels normal. (4) Nausea & vomiting Current Visit: Yes Status: Resolved Assessment and plan: Appetite improving, patient has had 3 pops and a cookie today- encouraged to eat /drink items besides junk foods- patient not happy about request. Continue antiemetic medications. (5) ISAIAS (acute kidney injury) Current Visit: Yes Status: Resolved (6) Dehydration Current Visit: Yes Status: Acute Assessment and plan: Continue IV fluids and to offer by mouth as she tolerates. (7) Weight loss, abnormal Current Visit: Yes Status: Acute Assessment and plan: Patient's father states that she has lost 20-30 pounds over the last 2 months. She states she has not been eating very well. Patient denies any appetite stimulants. We will continue to offer food as she tolerates. TSH normal. Cortisol level unremarkable. (8) Cerebral palsy Current Visit: Yes Status: Chronic Qualifiers: Cerebral palsy type: unspecified type Qualified Code(s): G80.9 - Cerebral palsy, unspecified (9) Seizure disorder Current Visit: Yes Status: Chronic Assessment and plan: No seizure-like activity since admission. Seizure precautions. (10) Asthma Current Visit: Yes Status: Chronic Assessment and plan: No acute exacerbation. Patient denies shortness of breath Qualifiers: Asthma severity: unspecified severity Asthma complication type: uncomplicated Qualified Code(s): J45.909 - Unspecified asthma, uncomplicated (11) DVT prophylaxis Current Visit: Yes Status: Acute Assessment and plan: SCD's ordered. Pharmacologic prophylaxis contraindicated secondary to anemia (12) Normocytic anemia Current Visit: Yes Status: Acute Assessment and plan: Acute, appears stable. We will continue to trend. We will guaiac next stool sample. - Subjective Interval history: Patient seen and examined. On examination, patient initially asleep in bed and awakened easily to voice. She denies pain at this time. Her aunt is at the bedside who had several questions regarding plan of care. Patient stating she is feeling better and is starting to get her appetite back. - Constitutional Vitals: Temp Pulse Resp BP Pulse Ox 97.6 F 75 16 113/75 99 11/04/16 11:37 11/04/16 11:37 11/04/16 11:37 11/04/16 11:37 11/04/16 11:37 General appearance: Present: A&O X 3, pleasant, no acute distress, answers questions appropriately - Head Head exam: Present: atraumatic, normocephalic - Eye Eye exam: Present: PERRL, conjuntiva pink, sclera anicteric Pupils: Present: PERRL - Neck Neck exam general surgery: Present: supple, trachea midline. Absent: lymphadenopathy - Respiratory Respiratory exam: Present: CTAB. Absent: accessory muscle use, rales, respiratory distress, rhonchi, wheezes - Cardiovascular Cardiovascular exam: Present: RRR, +S1, +S2. Absent: diastolic murmur, gallop, rubs, systolic murmur - GI/Abdominal GI/Abdominal exam: Present: distended, normal bowel sounds, soft, no peritoneal signs. Absent: tenderness - Extremities Exam Extremities exam: Present: warm, radial pulses palpable and symetrical. Absent : calf tenderness, cyanotic, pedal edema - Neurological Exam Neurological exam: Present: alert, CN II-XII intact, oriented X3, no focal deficits, strengths equal and symetr throughout. Absent: pronater drift, facial droop, speech deficit - Skin Skin exam: Present: dry, intact, pallor, warm Internal Medicine: Result - Labs CBC & Chem 7: 11/04/16 05:03 11/04/16 05:03 Labs: Short CBC 11/04/16 Range/Units 05:03 WBC 9.3 (4.3-11.1) K/mcL Hgb 9.8 L (11.5-15.4) g/dL Hct 30.3 L (35.3-44.9) % Plt Count 216 (140-400) K/mcL Neutrophils # 5.0 (1.6-8.9) K/mcL BMP 11/04/16 05:03 Sodium 142 Potassium 3.2 L Chloride 108 Carbon Dioxide 21 BUN 4 L Creatinine 0.70 Glucose 82 Calcium 8.7 Consult Discharge Plan - Plan Referrals: Patrick Farris DO [Primary Care Provider] -
[2016-11-04] MEDS ORDERED: Potassium Chloride Elixir 20 MEQ/15 ML UDC PO ONE (17:20)
--- NOTE | 2016-11-04 17:20 | Discharge Summary ---
Date of Encounter: 11/04/16 Time of Encounter: 10:30 (and 1430) - Discharge Diagnosis (1) C. difficile diarrhea Priority: Primary Status: Acute Comments: Stool culture consistent with C. difficile. Patient does not think that she has ever had C. difficile before and neither does her aunt. Flagyl initiated. Patient has not had a bowel movement since yesterday. Contact precautions while admitted. (2) Acute pyelonephritis Priority: Primary Status: Resolved Comments: Continue ceftriaxone. Culture consistent with pansensitive Escherichia coli. Allergies to penicillins, fluoroquinolones, and sulfa. We will continue cephalosporins and prescribe Cefdinir at discharge. Patient remained alert and oriented 3. No signs of sepsis. No leukocytosis. Vital signs stable. (3) Hypokalemia Priority: Primary Status: Acute Comments: Likely secondary to her diarrhea. Repleted, recommend close outpatient follow- up and recheck within 3 days. Will send home on Suppleents as her initial K was 2.7. Magnesium levels normal. (4) Nausea & vomiting Priority: Primary Status: Resolved (5) ISAIAS (acute kidney injury) Priority: Primary Status: Resolved (6) Dehydration Priority: Primary Status: Resolved (7) Weight loss, abnormal Priority: Primary Status: Acute Comments: Follow-up outpatient. Appetite returned to baseline prior to discharge. (8) Cerebral palsy Priority: Secondary Status: Chronic Qualifiers: Cerebral palsy type: unspecified type Qualified Code(s): G80.9 - Cerebral palsy, unspecified (9) Seizure disorder Priority: Secondary Status: Chronic Comments: No seizure-like activity while admitted (10) Asthma Priority: Secondary Status: Chronic Comments: No acute exacerbation during this admission. Qualifiers: Asthma severity: unspecified severity Asthma complication type: uncomplicated Qualified Code(s): J45.909 - Unspecified asthma, uncomplicated (11) DVT prophylaxis Priority: Primary Status: Acute Comments: SCD's ordered. Pharmacologic prophylaxis contraindicated secondary to anemia (12) Normocytic anemia Priority: Primary Status: Acute Comments: Acute; remained stable throughout this admission. Stool guaiac negative. Follow-up outpatient - Discharge Medications Prescriptions: Cefdinir [Omnicef] 300 mg PO BID #14 capsule Ferrous Sulfate 325 mg PO BIDWM #60 tablet Folic Acid 1 mg PO DAILY #30 tablet MetroNIDAZOLE [Flagyl] 500 mg PO TID #39 tablet Potassium Chloride 10 meq PO DAILY #14 tab.er.prt Home Medications: Albuterol Neb [AccuNeb] 2.5 mg IH TID PRN 04/18/15 [History] Cetirizine HCl [Zyrtec] 10 mg PO HS 04/18/15 [History] Divalproex (12 HR) [Depakote (12 HR)] 500 mg PO BID 04/18/15 [History] Fluticasone/Salmeterol [Advair 250-50 Diskus] 1 each IH BID 04/18/15 [History] Gabapentin [Neurontin] 600 mg PO TID 04/18/15 [History] LevETIRAcetam [Keppra] 1,000 mg PO BID 04/18/15 [History] Montelukast [Singulair] 10 mg PO DAILY 04/18/15 [History] Solifenacin Succinate [Vesicare] 10 mg PO HS 04/18/15 [History] Topiramate [Topamax] 50 mg PO HS 04/18/15 [History] Albuterol Sulfate [Albuterol Inhaler] 2 puff IH Q4HR PRN 05/09/15 [History] Etonogestrel [Nexplanon] 68 mg SQ AD 05/09/15 [History] Divalproex (12 HR) [Depakote (12 HR)] 250 mg PO HS 11/02/16 [History] Lansoprazole [Prevacid] 30 mg PO DAILY 11/02/16 [History] Citalopram [CeleXA] 20 mg PO DAILY 11/03/16 [History] Fluticasone Propionate Nasal [Flonase] 50 mcg NS DAILY PRN 11/03/16 [History] Hydroxyzine HCl 25 mg PO HS PRN 11/03/16 [History] Latanoprost [Xalatan] 1 drop OP HS 11/03/16 [History] Lidocaine Patch [Lidoderm 5% patch] 1 each TP DAILY 11/03/16 [History] Cefdinir [Omnicef] 300 mg PO BID #14 capsule 11/04/16 [Rx] Ferrous Sulfate 325 mg PO BIDWM #60 tablet 11/04/16 [Rx] Folic Acid 1 mg PO DAILY #30 tablet 11/04/16 [Rx] MetroNIDAZOLE [Flagyl] 500 mg PO TID #39 tablet 11/04/16 [Rx] Potassium Chloride 10 meq PO DAILY #14 tab.er.prt 11/04/16 [Rx] Allergies/Adverse Reactions: Allergies Amoxicillin Allergy (Mild, Verified 05/09/15 07:42) Hives acetaminophen [From Vicodin] Adverse Reaction (Severe, Verified 04/25/15 14:56) Itching hydrocodone [From Vicodin] Adverse Reaction (Severe, Verified 11/02/16 16:21) Itching Oxycodone [From Percocet] Adverse Reaction (Severe, Verified 11/02/16 16:21) Itching codeine Adverse Reaction (Unknown, Verified 11/02/16 16:21) UNKNOWN fexofenadine [From Eliza-D] Adverse Reaction (Unknown, Verified 11/02/16 16:21 ) Seizure lamotrigine [From Lamictal] Adverse Reaction (Unknown, Verified 11/02/16 16:21) unknown levofloxacin [From Levaquin] Adverse Reaction (Unknown, Verified 11/02/16 16:21) UNKNOWN prednisone Adverse Reaction (Unknown, Verified 11/02/16 16:21) unknown pseudoephedrine [From Eliza-D] Adverse Reaction (Unknown, Verified 11/02/16 16 :21) Seizure sertraline [From Zoloft] Adverse Reaction (Unknown, Verified 11/02/16 16:21) unknown Sulfa (Sulfonamide Antibiotics) Adverse Reaction (Unknown, Verified 11/02/16 16: 21) unknown brexpiprazole [From Rexulti] Adverse Reaction (Verified 11/02/16 16:21) Hallucinating Procedures/tests Complete & Pending: Procedures Performed prior 72 hours Category Date Time Status EKG [ECG 12 lead ECG] [ECG] Stat Y 11/03/16 03:51 Completed Date of admission: 11/02/16 22:08 Primary care physician: Galo Hammer Consults: 11/04/16 13:10 Consult to Instrument Specialist [CONS] Routine Reason for SW Consult: IMS HH? Discharging clinician: Rayne Ibrahim Anticipated date of discharge: 11/04/16 - Patient Status Disposition: Home, Self-Care Condition: Fair Functional capacity at discharge: independent ambulation Overall status at discharge: patient is progressing back to baseline - Discharge Instructions Follow Up With: Patrick Farris, [Primary Care Provider] - 11/15/16 11:30 am Additional Instructions: Follow-up with primary care provider as scheduled - Diet and Activity Activity: increase activity as tolerated Diet: regular diet Hospital course: Ms. Gomes is a 31 year old female with past medical history of cerebral palsy, bipolar, seizure disorder, asthma. Patient was at her primary care provider's office when her potassium was noted to be 2.3 so she was sent to the emergency department. Upon arrival, patient complained of left-sided flank/lower abdominal pain did not radiate, was crampy and worsened after eating. Patient denied dysuria or hematuria. She did report runny stool 2 times a day black in color that had been going on for a few weeks. She denied nausea, vomiting, fever, chills, chest pain, shortness of breath. She allegedly had a 20-30 pound weight loss over the last few months. Abdominal pelvic CT in the ER consistent with ascending UTI favored to be early pyelonephritis. Patient was started on ceftriaxone and admitted to the hospitalist service for further evaluation and management. Her hypokalemia was corrected. Magnesium levels were normal. Patient was admitted and observed over the course of 3 days. On the third day, patient was back to her baseline and was able to tolerate her regular diet. Of note, her regular diet is very nutritionally poor and consists mostly of pop and candy. Attempted educating her on better food choices but patient was not receptive. Her acute kidney injury resolved. We tested her stool which was positive for C. difficile so she was started on Flagyl. It does not appear as if the patient has had C. difficile in the past according to her and her aunt. She was also noted to have normocytic anemia which appears new for this patient. Guaiac was negative. Folate and iron levels were low and she was started on supplementation. Regarding her UTI, culture report notable for pansensitive Escherichia coli. Patient has allergies to penicillins, fluoroquinolones, and sulfa. Great coverage with cephalosporins so the patient was sent home on cefdinir which was the only non- IV choice after her allergies were removed. Patient's diarrhea slowed down during this admission and she was sent home on a small potassium supplement and instructed to follow up closely outpatient. She was discharged home in stable condition with close outpatient follow-up recommended. 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 The urinary bladder demonstrates circumferential wall thickening. Findings are concerning for ascending urinary tract infection. No evidence of urolithiasis. D/ / Ayush Benitez MD / Ayush Benitez MD Interpreting Provider: Ayush Benitez MD - Time Spent with Patient Total time spent providing and/or coordinating discharge services: - Constitutional Vitals: Temp Pulse Resp BP Pulse Ox 98.3 F 70 16 121/83 88 11/04/16 15:06 11/04/16 15:06 11/04/16 15:06 11/04/16 15:06 11/04/16 15:06 General appearance: Present: A&O X 3, pleasant, no acute distress, answers questions appropriately - Head Head exam: Present: atraumatic, normocephalic - Eye Eye exam: Present: PERRL, conjuntiva pink, sclera anicteric Pupils: Present: PERRL - Neck Neck exam general surgery: Present: supple, trachea midline. Absent: lymphadenopathy - Respiratory Respiratory exam: Present: CTAB. Absent: accessory muscle use, rales, respiratory distress, rhonchi, wheezes - Cardiovascular Cardiovascular exam: Present: RRR, +S1, +S2. Absent: diastolic murmur, gallop, rubs, systolic murmur - GI/Abdominal GI/Abdominal exam: Present: normal bowel sounds, soft, no peritoneal signs. Absent: distended, tenderness - Extremities Exam Extremities exam: Present: warm, radial pulses palpable and symetrical. Absent : calf tenderness, cyanotic, pedal edema - Neurological Exam Neurological exam: Present: alert, CN II-XII intact, oriented X3, no focal deficits. Absent: pronater drift, facial droop, speech deficit - Skin Skin exam: Present: dry, intact, normal color, warm
[2016-11-05 10:56] VITALS: BP 119/82
== END 2016-11-04 21:30 | disposition home or self-care (01) | DRG 372 ==
LOC: 3BNU 16:19 → EMEROO 16:19 → 3BNU 20:26
PROVIDERS: ADMIT Nurse Practitioner Family; ATTEND Nurse Practitioner Family

== ENCOUNTER 2021-12-09 10:52 | Inpatient (IN) ==
[2021-12-09] MEDS ORDERED: 0.9 % Sodium Chloride 1,000 ML IVC ONE ×2 (10:58→13:42)
[2021-12-09 11:35] LABS: Basophils % 0.5 %; Eosinophils % 0.3 %; Hematocrit 43.4 % (35.3-44.9); Hemoglobin 14.4 g/dL (11.5-15.4); Immature Granulocytes % 0.8 % (0-4); Lymphocytes # 3.1 K/mcL (0.6-4.6); Lymphocytes % 40.3 %; Mean Corpuscular HGB Conc 33.2 g/dL (31.6-35.5); Mean Corpuscular Hemoglobin 31.1 pg (28.0-33.3); Mean Corpuscular Volume 93.7 fL (83.0-100.0); Mean Platelet Volume 10.4 fL (9.4-12.4); Monocytes # 0.4 K/mcL (0.0-1.3); Monocytes % 5.6 %; Neutrophils # 4.1 K/mcL (1.6-8.9); Platelet Count 237 K/mcL (140-400); Red Blood Count 4.63 M/mcL (3.82-4.97); Red Cell Distribution Width 12.9 % (11.5-14.5); Segmented Neutrophils % 52.5 %; White Blood Count 7.8 K/mcL (4.3-11.1)
[2021-12-09 13:16] LABS: Alanine Aminotransferase 20 Units/L (7-52); Albumin 3.6 g/dL (3.5-5.7); Albumin/Globulin Ratio 1.1 (1.1-2.2); Alkaline Phosphatase 63 Units/L (34-104); Aspartate Amino Transferase 36 Units/L (13-39); BUN/Creatinine Ratio 38 (6-26); Bilirubin,Total 0.5 mg/dL (0.3-1.0); Blood Urea Nitrogen 26 mg/dL (6-20); Calcium 9.1 mg/dL (8.6-10.3); Carbon Dioxide 20 mEq/L (23-29); Chloride 104 mEq/L (98-107); Creatine Kinase 69 Units/L (30-223); Globulin 3.2 g/dL (2.4-3.5); Glucose 77 mg/dL (70-105); Magnesium 2.2 mg/dL (1.6-2.6); Osmolality,Calculated 278 (280-300); Potassium 3.6 mEq/L (3.5-5.1); Sodium 132 mEq/L (136-145); Total Protein 6.8 g/dL (6.4-8.9); Troponin I < 0.03 ng/mL (< 0.04); eGFR For African Americans > 60 (> 60); eGFR For Non-African Americans > 60 (> 60)
[2021-12-09 13:58] LABS: Bacteria,Urine Few per hpf (None-Few); Bilirubin,Urine Negative (Negative); Blood,Urine Large (Negative); Clarity,Urine Clear (Clear); Color,Urine Yellow (Yellow); Glucose,Urine (UA) Normal (Normal); Ketones,Urine 100 mg/dL (Negative); Leukocyte Esterase,Urine Negative (Negative); Mucus,Urine Many per lpf (None-Few); Nitrite,Urine Negative (Negative); PH,Urine 5.5 pH Units (5.0-8.0); Protein,Urine 100 mg/dL (Neg-Trace); RBC,Urine TNTC per hpf (0-3); Specific Gravity,Urine > 1.030 (1.010-1.025); Squamous Epithelial Cell,Urine Few per hpf (None-Few)
[2021-12-09] MEDS ORDERED: Naloxone 0.4 MG/ML INJ IVP PRN (15:04)
[2021-12-09] MEDS ORDERED: Melatonin 3 MG TABLET PO PRN (15:04)
[2021-12-09] MEDS ORDERED: MOM Conc 10 ML UD.LIQ PO PRN (15:04)
[2021-12-09] MEDS ORDERED: Mag Hydrox/Al Hydrox/Simeth 30 ML UDC PO PRN (15:04)
[2021-12-09] MEDS: cefTRIAXone 1,000 MG in 0.9 % Sodium Chloride 10 ML IVPB SCH (16:27)
[2021-12-09] MEDS: Ondansetron ODT 4 MG TAB.RAPDIS SL PRN (17:42)
[2021-12-09] MEDS: Gabapentin 300 MG CAPSULE PO SCH (21:12)
[2021-12-09] MEDS: Topiramate 100 MG TABLET PO SCH (21:12)
[2021-12-09] MEDS: risperiDONE 1 MG TABLET PO SCH (21:12)
[2021-12-09] MEDS: levETIRAcetam 250 MG TABLET PO SCH (21:12)
[2021-12-09] MEDS: Latanoprost 2.5 ML BOTTLE LEFT EYE SCH (22:53)
[2021-12-10 03:39] LABS: Alanine Aminotransferase 14 Units/L (7-52); Albumin/Globulin Ratio 1.1 (1.1-2.2); Alkaline Phosphatase 61 Units/L (34-104); Aspartate Amino Transferase 26 Units/L (13-39); BUN/Creatinine Ratio 48 (6-26); Basophils # 0.1 K/mcL (0.0-0.2); Basophils % 0.6 %; Bilirubin,Total 0.4 mg/dL (0.3-1.0); Blood Urea Nitrogen 25 mg/dL (6-20); Calcium 8.2 mg/dL (8.6-10.3); Carbon Dioxide 18 mEq/L (23-29); Chloride 109 mEq/L (98-107); Eosinophils # 0.1 K/mcL (0.0-0.6); Eosinophils % 0.6 %; Globulin 2.8 g/dL (2.4-3.5); Glucose 80 mg/dL (70-105); Lymphocytes # 3.8 K/mcL (0.6-4.6); Lymphocytes % 47.3 %; Mean Corpuscular HGB Conc 34.6 g/dL (31.6-35.5); Mean Corpuscular Hemoglobin 31.4 pg (28.0-33.3); Mean Corpuscular Volume 90.9 fL (83.0-100.0); Mean Platelet Volume 12.1 fL (9.4-12.4); Monocytes # 0.6 K/mcL (0.0-1.3); Neutrophils # 3.5 K/mcL (1.6-8.9); Osmolality,Calculated 285 (280-300); Platelet Count 157 K/mcL (140-400); Potassium 3.9 mEq/L (3.5-5.1); Red Blood Count 4.07 M/mcL (3.82-4.97); Red Cell Distribution Width 12.7 % (11.5-14.5); Segmented Neutrophils % 42.5 %; Sodium 136 mEq/L (136-145); Total Protein 5.8 g/dL (6.4-8.9); White Blood Count 8.1 K/mcL (4.3-11.1); eGFR For African Americans > 60 (> 60); eGFR For Non-African Americans > 60 (> 60)
[2021-12-10 03:41] LABS: Hemoglobin 12.8 g/dL (11.5-15.4)
[2021-12-10] MEDS: *HR* Enoxaparin 40 MG/0.4 ML SYRINGE SQ SCH (05:01)
[2021-12-10] MEDS: cefTRIAXone 1,000 MG in 0.9 % Sodium Chloride 10 ML IVPB SCH (08:49)
[2021-12-10] MEDS: levETIRAcetam 250 MG TABLET PO SCH ×2 (08:50→19:43)
[2021-12-10] MEDS: Divalproex (24 HR) 500 MG TABLET PO SCH (08:50)
[2021-12-10] MEDS: risperiDONE 1 MG TABLET PO SCH ×2 (08:50→19:42)
[2021-12-10] MEDS: Topiramate 25 MG TABLET PO SCH (08:50)
[2021-12-10] MEDS: Gabapentin 300 MG CAPSULE PO SCH ×3 (08:50→19:43)
[2021-12-10] MEDS: Albuterol 2.5 MG/3 ML NEBULIZER IH SCH ×2 (15:48→21:34)
[2021-12-10] MEDS: Topiramate 100 MG TABLET PO SCH (19:42)
[2021-12-10] MEDS: Latanoprost 2.5 ML BOTTLE LEFT EYE SCH (19:44)
[2021-12-10] MEDS: Budesonide/Formoterol 160/4.5 1 PUFF INH IH SCH (21:34)
[2021-12-11] MEDS: *HR* Enoxaparin 40 MG/0.4 ML SYRINGE SQ SCH (05:52)
[2021-12-11] MEDS: Albuterol 2.5 MG/3 ML NEBULIZER IH SCH ×4 (07:19→21:50)
[2021-12-11] MEDS: Budesonide/Formoterol 160/4.5 1 PUFF INH IH SCH ×2 (07:19→21:50)
[2021-12-11] MEDS: levETIRAcetam 1,000 MG in 0.9 % Sodium Chloride 100 ML IVPB SCH ×2 (11:27→20:11)
[2021-12-11] MEDS: Gabapentin 300 MG CAPSULE PO SCH ×3 (11:28→20:10)
[2021-12-11] MEDS: Pantoprazole 40 MG VIAL IVP SCH ×2 (11:28→18:26)
[2021-12-11] MEDS: risperiDONE 1 MG TABLET PO SCH ×2 (11:28→20:10)
[2021-12-11] MEDS: cefTRIAXone 1,000 MG in 0.9 % Sodium Chloride 10 ML IVPB SCH (11:28)
[2021-12-11] MEDS: Topiramate 25 MG TABLET PO SCH (11:34)
[2021-12-11] MEDS: Divalproex (24 HR) 500 MG TABLET PO SCH (12:25)
[2021-12-11] MEDS: levETIRAcetam 250 MG TABLET PO SCH (12:25)
[2021-12-11] MEDS: Valproic Acid INJ 125 MG in 0.9 % Sodium Chloride 100 ML IVPB SCH ×2 (13:11→18:49)
[2021-12-11] MEDS: Ondansetron ODT 4 MG TAB.RAPDIS SL PRN (13:11)
[2021-12-11] MEDS: Topiramate 100 MG TABLET PO SCH (20:10)
[2021-12-11] MEDS: Latanoprost 2.5 ML BOTTLE LEFT EYE SCH (20:11)
[2021-12-12] MEDS: Valproic Acid INJ 125 MG in 0.9 % Sodium Chloride 100 ML IVPB SCH ×4 (00:56→17:26)
[2021-12-12] MEDS: Pantoprazole 40 MG VIAL IVP SCH ×2 (06:01→17:26)
[2021-12-12] MEDS: *HR* Enoxaparin 40 MG/0.4 ML SYRINGE SQ SCH (06:02)
[2021-12-12] MEDS: Budesonide/Formoterol 160/4.5 1 PUFF INH IH SCH ×2 (07:44→23:06)
[2021-12-12] MEDS: Albuterol 2.5 MG/3 ML NEBULIZER IH SCH ×3 (07:44→23:06)
[2021-12-12] MEDS: levETIRAcetam 1,000 MG in 0.9 % Sodium Chloride 100 ML IVPB SCH ×2 (09:58→20:12)
[2021-12-12] MEDS ORDERED: Acetaminophen IV 1,000 MG/100 ML BAG IVPB ONE ×2 (10:07→16:55)
[2021-12-12] MEDS: Ondansetron ODT 4 MG TAB.RAPDIS SL PRN (10:30)
[2021-12-12] MEDS: risperiDONE 1 MG TABLET PO SCH ×2 (11:52→20:13)
[2021-12-12] MEDS: Gabapentin 300 MG CAPSULE PO SCH ×3 (11:52→20:13)
[2021-12-12] MEDS: Topiramate 25 MG TABLET PO SCH (11:52)
[2021-12-12] MEDS: Topiramate 100 MG TABLET PO SCH (20:13)
[2021-12-12] MEDS: Latanoprost 2.5 ML BOTTLE LEFT EYE SCH (20:14)
[2021-12-13] MEDS: Valproic Acid INJ 125 MG in 0.9 % Sodium Chloride 100 ML IVPB SCH ×4 (00:46→17:59)
[2021-12-13 02:01] LABS: Basophils % 0.5 %; Eosinophils # 0.2 K/mcL (0.0-0.6); Hematocrit 31.9 % (35.3-44.9); Immature Granulocytes % 0.7 % (0-4); Lymphocytes # 3.5 K/mcL (0.6-4.6); Lymphocytes % 46.5 %; Mean Corpuscular HGB Conc 33.9 g/dL (31.6-35.5); Mean Corpuscular Volume 91.7 fL (83.0-100.0); Mean Platelet Volume 11.2 fL (9.4-12.4); Monocytes # 0.6 K/mcL (0.0-1.3); Monocytes % 8.5 %; Neutrophils # 3.1 K/mcL (1.6-8.9); Platelet Count 212 K/mcL (140-400); Red Blood Count 3.48 M/mcL (3.82-4.97); Red Cell Distribution Width 13.1 % (11.5-14.5); Segmented Neutrophils % 41.8 %; White Blood Count 7.5 K/mcL (4.3-11.1)
[2021-12-13 02:10] LABS: BUN/Creatinine Ratio 16 (6-26); Blood Urea Nitrogen 8 mg/dL (6-20); Calcium 8.6 mg/dL (8.6-10.3); Carbon Dioxide 21 mEq/L (23-29); Chloride 108 mEq/L (98-107); Glucose 84 mg/dL (70-105); Osmolality,Calculated 284 (280-300); Potassium 2.8 mEq/L (3.5-5.1); Sodium 138 mEq/L (136-145); eGFR For African Americans > 60 (> 60); eGFR For Non-African Americans > 60 (> 60)
[2021-12-13 02:27] LABS: Hemoglobin 10.8 g/dL (11.5-15.4)
[2021-12-13] MEDS: Pantoprazole 40 MG VIAL IVP SCH ×2 (06:10→17:55)
[2021-12-13] MEDS: *HR* Enoxaparin 40 MG/0.4 ML SYRINGE SQ SCH (06:11)
[2021-12-13] MEDS: Topiramate 25 MG TABLET PO SCH (07:29)
[2021-12-13] MEDS: Gabapentin 300 MG CAPSULE PO SCH ×3 (07:29→20:32)
[2021-12-13] MEDS: risperiDONE 1 MG TABLET PO SCH ×2 (07:29→20:31)
[2021-12-13] MEDS: Budesonide/Formoterol 160/4.5 1 PUFF INH IH SCH ×3 (07:33→21:29)
[2021-12-13] MEDS: Albuterol 2.5 MG/3 ML NEBULIZER IH SCH ×3 (07:33→21:27)
[2021-12-13] MEDS: levETIRAcetam 1,000 MG in 0.9 % Sodium Chloride 100 ML IVPB SCH ×2 (11:00→20:17)
[2021-12-13] MEDS ORDERED: Acetaminophen IV 1,000 MG/100 ML BAG IVPB ONE (11:35)
[2021-12-13] MEDS ORDERED: *HR* Propofol 200 MG/20 ML VIAL IVP ONE (12:35)
[2021-12-13] MEDS ORDERED: Lidocaine -MPF 2% 5 ML VIAL ONE (12:35)
[2021-12-13] MEDS: Ondansetron ODT 4 MG TAB.RAPDIS SL PRN (17:55)
[2021-12-13] MEDS: Topiramate 100 MG TABLET PO SCH (20:31)
[2021-12-14] MEDS: Valproic Acid INJ 125 MG in 0.9 % Sodium Chloride 100 ML IVPB SCH ×4 (00:30→18:20)
[2021-12-14] MEDS: Latanoprost 2.5 ML BOTTLE LEFT EYE SCH ×2 (05:17→21:28)
[2021-12-14 05:33] LABS: Basophils # 0.1 K/mcL (0.0-0.2); Basophils % 0.7 %; Eosinophils # 0.3 K/mcL (0.0-0.6); Eosinophils % 3.3 %; Hematocrit 32.2 % (35.3-44.9); Immature Granulocytes % 1.1 % (0-4); Lymphocytes % 48.2 %; Mean Corpuscular HGB Conc 34.2 g/dL (31.6-35.5); Mean Corpuscular Volume 90.7 fL (83.0-100.0); Mean Platelet Volume 10.2 fL (9.4-12.4); Monocytes # 0.8 K/mcL (0.0-1.3); Monocytes % 9.4 %; Neutrophils # 3.1 K/mcL (1.6-8.9); Platelet Count 283 K/mcL (140-400); Red Blood Count 3.55 M/mcL (3.82-4.97); Red Cell Distribution Width 13.2 % (11.5-14.5); Segmented Neutrophils % 37.3 %; White Blood Count 8.2 K/mcL (4.3-11.1)
[2021-12-14 05:55] LABS: BUN/Creatinine Ratio 13 (6-26); Blood Urea Nitrogen 7 mg/dL (6-20); Carbon Dioxide 19 mEq/L (23-29); Chloride 107 mEq/L (98-107); Glucose 87 mg/dL (70-105); Osmolality,Calculated 279 (280-300); Potassium 3.2 mEq/L (3.5-5.1); Sodium 136 mEq/L (136-145); eGFR For African Americans > 60 (> 60); eGFR For Non-African Americans > 60 (> 60)
[2021-12-14] MEDS: Pantoprazole 40 MG VIAL IVP SCH ×2 (06:13→18:14)
[2021-12-14] MEDS: *HR* Enoxaparin 40 MG/0.4 ML SYRINGE SQ SCH (06:13)
[2021-12-14] MEDS: Ondansetron ODT 4 MG TAB.RAPDIS SL PRN (06:35)
[2021-12-14] MEDS: Gabapentin 300 MG CAPSULE PO SCH ×3 (07:47→21:27)
[2021-12-14] MEDS: Topiramate 25 MG TABLET PO SCH (07:48)
[2021-12-14] MEDS: risperiDONE 1 MG TABLET PO SCH ×2 (07:48→21:27)
[2021-12-14] MEDS: levETIRAcetam 1,000 MG in 0.9 % Sodium Chloride 100 ML IVPB SCH (07:54)
[2021-12-14] MEDS: Albuterol 2.5 MG/3 ML NEBULIZER IH SCH ×3 (08:30→23:35)
[2021-12-14] MEDS ORDERED: 0.9 % Sodium Chloride 1,000 ML ONE (10:23)
[2021-12-14] MEDS: Budesonide/Formoterol 160/4.5 1 PUFF INH IH SCH ×2 (10:57→23:36)
[2021-12-14] MEDS: Nystatin POWDER 30 GM BOTTLE TP SCH ×2 (14:20→21:28)
[2021-12-14] MEDS ORDERED: Acetaminophen IV 1,000 MG/100 ML BAG IVPB ONE (19:10)
[2021-12-14] MEDS ORDERED: levETIRAcetam 250 MG TABLET PO SCH (21:00)
[2021-12-14] MEDS: Topiramate 100 MG TABLET PO SCH (21:26)
[2021-12-15 01:34] LABS: Hematocrit 32.1 % (35.3-44.9); Hemoglobin 10.6 g/dL (11.5-15.4)
[2021-12-15 01:50] LABS: BUN/Creatinine Ratio 15 (6-26); Blood Urea Nitrogen 7 mg/dL (6-20); Calcium 8.9 mg/dL (8.6-10.3); Carbon Dioxide 21 mEq/L (23-29); Chloride 106 mEq/L (98-107); Glucose 122 mg/dL (70-105); Osmolality,Calculated 279 (280-300); Potassium 3.3 mEq/L (3.5-5.1); Sodium 135 mEq/L (136-145); eGFR For African Americans > 60 (> 60); eGFR For Non-African Americans > 60 (> 60)
[2021-12-15] MEDS: Pantoprazole 40 MG VIAL IVP SCH (05:52)
[2021-12-15] MEDS: *HR* Enoxaparin 40 MG/0.4 ML SYRINGE SQ SCH (05:52)
[2021-12-15] MEDS ORDERED: Acetaminophen 325 MG TABLET PO ONE (06:06)
[2021-12-15 07:36] VITALS: BP 109/76; PULSE 63; TEMP 98.2
[2021-12-15] MEDS: Albuterol 2.5 MG/3 ML NEBULIZER IH SCH ×2 (07:41→15:25)
[2021-12-15] MEDS: Budesonide/Formoterol 160/4.5 1 PUFF INH IH SCH (07:43)
[2021-12-15] MEDS ORDERED: Potassium Chloride Elixir 20 MEQ/15 ML UDC PO ONE (07:49)
[2021-12-15] MEDS ORDERED: Divalproex (24 HR) 500 MG TABLET PO SCH (09:00)
[2021-12-15 17:39] VITALS: O2SAT 100
== END 2021-12-15 15:47 | DRG 690 ==
LOC: EMEROOARM 10:52 → 3ANU 10:52 → SUATTDRO 14:28 → 3ANU 15:11 → SUATTDRO 12-10 08:40
PROVIDERS: ADMIT Student in an Organized Health Care Education/Training Program; ATTEND Family Medicine
PROC: ENDOEBX (2021-12-13 12:00)